=== PATIENT | female | born 1935 ===

== ENCOUNTER 2019-06-18 11:44 | Emergency (ER) | payer OTHER ==
[~2019-06-18] VITALS: Ht 154.9 cm; Wt 131.5 kg
[~2019-06-18 11:44] MED LIST: ADALAT CC30 MG; ARICEPT10 MG; AVAPRO300 MG; CHILDREN'S ASPI81 MG; NAMENDA10 MG; SIMVASTATIN20 MG; TRIAMTERENE-HC1 EAC3
== END 2019-06-18 18:26 | disposition home or self-care (01) ==
LOC: ER 11:44
DX: R55 Syncope and collapse (principal)